=== PATIENT | female | born 1945 | race Caucasian/White ===

== ENCOUNTER 2017-09-16 09:07 | Outpatient (CLI) | payer MEDICARE, MEDICAID ==
--- NOTE | 2017-09-16 15:08 | DEXA Report ---
DEXA SCAN: 09/16/2017 CLINICAL INDICATION: Postmenopausal. TECHNIQUE: Dual energy x-ray absorptiometry (DXA) was performed on a [employer] system. Regions measured are the AP spine, femoral neck, and, if needed, forearm. COMPARISON: None. In accordance with the International Society for Clinical Densitometry (ISCD) guidelines, data from previous exams may be reanalyzed using current recommendations and techniques. This is done to allow a more accurate basis for comparison with the current study. FINDINGS The data for the lumbar spine is as follows: REGION BMD (g/cm/cm) T-SCORE Z-SCORE L1 1.511 3.2 4.2 L2 1.590 3.3 4.2 L3 1.646 3.7 4.7 L4 1.627 3.6 4.6 TOTAL 1.597 3.5 4.5 NOTE: All evaluable vertebrae are used for classification. The data for the hip is as follows: REGION BMD (g/cm/cm) T-SCORE Z-SCORE Neck 1.026 -0.1 1.3 TOTAL 1.169 1.3 2.4 NOTE: The femoral neck or total proximal femur, whichever is lowest, is used for classification. IMPRESSION THE WHO CLASSIFICATION BASED ON THE INTERNATIONAL REFERENCE STANDARD IS NORMAL. THE FRACTURE RISK IS NOT INCREASED. RECOMMENDATION: Patients with diagnosis of osteoporosis or osteopenia should have regular bone mineral density assessment. For those eligible for Medicare, routine testing is allowed once every 2 years. Testing frequency can be increased for patients who have rapidly progressing disease or for those who are receiving medical therapy to restore bone mass. COMMENT: World Health Organization (WHO) definitions for osteoporosis and osteopenia: NORMAL BMD: T-score at 1.0 or higher, fracture risk is low. OSTEOPENIA BMD: T-score between 1.0 and -2.5, fracture risk is increased. OSTEOPOROSIS BMD: T-score at 2.5 or lower, fracture risk high. National Osteoporosis Foundation recommends: 1. Obtain adequate dietary calcium (at least 1200 mg per day) and vitamin D (400 -800 international units per day). 2. Participate, as appropriate, in regular weightbearing and muscle- strengthening exercise. 3. Avoid tobacco use and reduce alcohol and caffeine intake. 4. For more detailed information see the website at www.NOF.org. TD: 09/16/2017 12:16 VASILIY
== END 2017-09-16 09:08 | disposition home or self-care (01) ==
LOC: DI 09:07
PROVIDERS: ATTEND Physician Assistant
DX: N95.8 Other specified menopausal and perimenopausal disorders (principal)
CPT/HCPCS: 77080

== ENCOUNTER 2017-09-16 09:10 | Outpatient (CLI) | payer MEDICARE, MEDICAID ==
--- NOTE | 2017-09-17 18:48 | Mammography Report ---
DIGITAL SCREENING MAMMOGRAM: 09/16/2017 CLINICAL INDICATION: A 71-year-old for screening. COMPARISON: 05/2016, 02/2014, 02/2013. TECHNIQUE: Routine CC and MLO projections were obtained of the breasts. FINDINGS: The breasts demonstrate scattered fibroglandular densities bilaterally. Coarse and punctate, typically benign calcifications are present. No suspicious masses, clustered microcalcifications, or regions of architectural distortion are identified. IMPRESSION: BENIGN FINDINGS. RECOMMENDATIONS: Routine annual screening unless otherwise clinically indicated. BIRADS category 2 benign findings. STANDARD QUALIFYING STATEMENTS 1. This examination was reviewed with the aid of Computed-Aided Detection (CAD). 2. A negative or benign imaging report should not delay biopsy if clinically suspicious findings are present. Consider surgical consultation if warranted. More than 5% of cancers are not identified by imaging. 3. Dense breasts may obscure an underlying neoplasm. TD: 09/17/2017 18:46
== END 2017-09-16 09:11 | disposition home or self-care (01) ==
LOC: DI 09:10
PROVIDERS: ATTEND Physician Assistant
DX: Z12.31 Encounter for screening mammogram for malignant neoplasm of breast (principal)
CPT/HCPCS: 77067

== ENCOUNTER 2017-11-18 11:53 | Outpatient (CLI) | payer MEDICARE, MEDICAID ==
--- NOTE | 2017-11-18 12:51 | XRAY Report ---
THREE VIEW LEFT ANKLE: 11/18/2017 CLINICAL INDICATION: Pain, swelling. FINDINGS: AP, lateral, and oblique views of the left ankle demonstrate no evidence of fracture or dislocation. Soft tissue swelling is present. Plantar and posterior calcaneal spurring is noted. No foreign body is seen in the soft tissues. IMPRESSION: SOFT TISSUE SWELLING, BUT NO EVIDENCE OF ACUTE FRACTURE. TD: 11/18/2017 12:50
== END 2017-11-18 11:54 | disposition home or self-care (01) ==
LOC: DI.S 11:53
PROVIDERS: ATTEND Physician Assistant
DX: M25.572 Pain in left ankle and joints of left foot (principal); R22.42 Localized swelling, mass and lump, left lower limb

== ENCOUNTER 2018-09-01 12:24 | Emergency (ER) | payer MEDICARE, MEDICAID ==
[2018-09-01 12:40] VITALS: BP 143/49
== END 2018-09-01 14:03 | disposition left against medical advice (07) ==
LOC: ED 12:24
DX: R51 Headache (principal); M54.2 Cervicalgia; M25.512 Pain in left shoulder; M25.511 Pain in right shoulder; Z53.21 Procedure and treatment not carried out due to patient leaving prior to being seen by health care provider

== ENCOUNTER 2018-09-23 12:19 | Outpatient (CLI) | payer MEDICARE, MEDICAID ==
--- NOTE | 2018-09-23 19:33 | CT Report ---
Reason: CRUSHING INJURY OF FACE,INITIAL ENCOUNTER,CERVICAL Procedure Date: 09/23/2018 Accession Number: [id number] / [id number] Procedure: CT - HEAD WO CPT Code: FULL RESULT: EXAM: CT HEAD EXAM DATE: 09/23/2018 12:46 PM. CLINICAL HISTORY: 72-year-old female. CRUSHING INJURY OF FACE,INITIAL ENCOUNTER,CERVICAL. COMPARISON: None. TECHNIQUE: Multiaxial CT images were obtained from the foramen magnum to the vertex. Reformats: Sagittal and coronal. IV contrast: None. In accordance with CT protocol optimization, one or more of the following dose reduction techniques were utilized for this exam: automated exposure control, adjustment of mA and/or KV based on patient size, or use of iterative reconstructive technique. FINDINGS: Parenchyma: No intraparenchymal hemorrhage. No evidence of mass, midline shift, or CT findings of infarction. Escobedo-white differentiation is distinct. Extraaxial Spaces: Normal for age. No subdural or epidural collections identified. Ventricles: Normal in size and position. Sinuses and Orbits: Imaged paranasal sinuses, orbits, and mastoids show no significant abnormality. Bones: No evidence of fracture or calvarial defect. Other: Moderate atherosclerosis intracranial arteries. IMPRESSION: No CT evidence of acute intracranial abnormality, specifically no CT evidence of acute infarct, intracranial hemorrhage, mass effect, midline shift, or hydrocephalus. RADIA
== END 2018-09-23 12:20 | disposition home or self-care (01) ==
LOC: DI 12:19
PROVIDERS: ATTEND Physician Assistant
DX: S07.0XXA Crushing injury of face, initial encounter (principal); M54.2 Cervicalgia; N18.3 Chronic kidney disease, stage 3 (moderate)
CPT/HCPCS: 70450; 76770

== ENCOUNTER 2018-09-23 12:21 | Outpatient (CLI) | payer MEDICARE, MEDICAID ==
--- NOTE | 2018-09-23 16:04 | Ultrasound Report ---
Reason: CHRONIC KIDNEY DISEASE, STAGE 3 Procedure Date: 09/23/2018 Accession Number: [id number] / [id number] Procedure: US - Retroperitoneal CPT Code: FULL RESULT: EXAM: RENAL ULTRASOUND. EXAM DATE: 09/23/2018 01:30 PM. CLINICAL HISTORY: Chronic kidney disease, stage 3. COMPARISON: None. TECHNIQUE: Real-time scanning was performed with static images obtained. FINDINGS: Subjectively there is mild cortical thinning of both kidneys. Right Kidney: 9.5 cm. Increased cortical echogenicity, otherwise normal echotexture with no stones, contour-deforming masses, or hydronephrosis. Left Kidney: 10.4 cm. Increased cortical echogenicity, otherwise normal echotexture with no stones, contour-deforming masses, or hydronephrosis. Bladder: Bilateral jets seen. The prevoid bladder volume was 310 cc. The postvoid bladder volume was 162 cc. Other: None. IMPRESSION: Echogenic shrunken kidneys in keeping with medical renal disease. Postvoid residual of 162 mL. RADIA
== END 2018-09-23 12:22 | disposition home or self-care (01) ==
LOC: DI 12:21
PROVIDERS: ATTEND Physician Assistant
DX: N18.3 Chronic kidney disease, stage 3 (moderate) (principal)
CPT/HCPCS: 76770

== ENCOUNTER 2018-09-24 09:09 | Outpatient (CLI) | payer MEDICARE, MEDICAID ==
--- NOTE | 2018-09-24 11:01 | XRAY Report ---
Reason: CERVALGIA Procedure Date: 09/24/2018 Accession Number: [id number] / [id number] Procedure: XR - Cervical Spine 2 View CPT Code: FULL RESULT: EXAM: CERVICAL SPINE RADIOGRAPHY EXAM DATE: 09/24/2018 09:40 AM. CLINICAL HISTORY: Cervicalgia. COMPARISONS: None. TECHNIQUE: 3 views. FINDINGS: Alignment: Normal. No spondylolisthesis or scoliosis. Bones: The cervical vertebral bodies and posterior elements are well visualized from the skull base through C7-T1. No fractures or bone lesions. Disks: Normal. Disk heights are maintained. Facets: Mild lateral mass hypertrophy and facet arthropathy. Soft Tissues: Normal. No prevertebral soft tissue swelling. The visualized lung apices are clear. IMPRESSION: Degenerative disease prominently in the facets and lateral masses. RADIA
== END 2018-09-24 09:10 | disposition home or self-care (01) ==
LOC: DI 09:09
PROVIDERS: ATTEND Physician Assistant
DX: M47.812 Spondylosis without myelopathy or radiculopathy, cervical region (principal)
CPT/HCPCS: 72040

== ENCOUNTER 2020-02-04 09:53 | Outpatient (CLI) | payer MEDICARE, MEDICAID | END 2020-02-04 09:54 | disposition critical access hospital (66) | LOC: EMS 09:53 | PROVIDERS: ATTEND Surgery | DX: R42 Dizziness and giddiness (principal); R11.0 Nausea; R53.1 Weakness | CPT/HCPCS: A0425; A0427 ==

== ENCOUNTER 2020-02-04 10:33 | Emergency (ER) | payer MEDICARE, MEDICAID ==
[2020-02-04] MEDS ORDERED: SODIUM CHLORIDE 0.9% 1,000 ML IV STA ×2 (11:05→14:55)
--- NOTE | 2020-02-04 11:08 | ED Physician Documentation ---
History of Present Illness - Stated complaint Stated Complaint: WEAKNESS - Chief complaint Chief Complaint: General - History obtained from History obtained from: Patient, Family - History of Present Illness Timing: Today - Additonal information Additional information: 74-year-old female has had some swelling in her ankles which is usually typical for her in the summer and about 6 days ago she went in to see Dr. Cervantes and was prescribed some Lasix. She started that on Saturday morning and she is lost about 6 or 8 pounds of water today she can barely stand up. She is brought in by ambulance. Review of Systems Constitutional: denies: Fever, Chills Nose: denies: Congestion Throat: denies: Sore throat Cardiac: denies: Chest pain / pressure, Palpitations Respiratory: denies: Dyspnea, Cough GI: denies: Abdominal Pain, Nausea, Vomiting, Constipation, Diarrhea : reports: Frequency. denies: Dysuria Skin: denies: Rash, Lesions Musculoskeletal: denies: Neck pain, Back pain, Extremity pain Neurologic: reports: Generalized weakness. denies: Focal weakness, Numbness PD PAST MEDICAL HISTORY - Past Medical History Past Medical History: Yes Cardiovascular: None Respiratory: None Neuro: None Endocrine/Autoimmune: Type 2 diabetes GI: None ETHYLBENZENE OXIDIZER: None : Other HEENT: None Psych: None Musculoskeletal: None Derm: None Other Past Medical History: CKD - Past Surgical History Past Surgical History: No - Allergies Allergies/Adverse Reactions: Allergies Allergy/AdvReac Type Severity Reaction Status Date / Time hydrocodone Allergy Anaphylaxis Verified 09/01/18 12:41 - Social History Does the pt smoke?: No Smoking Status: Never smoker PD ED PE NORMAL - Vitals Vital signs reviewed: Yes (Hypertensive with wide pulse pressure) - General General: Alert and oriented X 3, No acute distress, Well developed/nourished - HEENT HEENT: Atraumatic, PERRL, EOMI - Neck Neck: Supple, no meningeal sign, No bony TTP - Cardiac Cardiac: RRR, No murmur - Respiratory Respiratory: No respiratory distress, Clear bilaterally - Abdomen Abdomen: Normal bowel sounds, Soft, Non tender, Non distended, No organomegaly - Back Back: No CVA TTP, No spinal TTP - Derm Derm: Normal color, Warm and dry, No rash - Extremities Extremities: No deformity, Normal ROM s pain, No edema, No calf tenderness / cord - Neuro Neuro: Alert and oriented X 3, supervisor twisting department 2-12 intact, No motor deficit, No sensory deficit, Normal speech Eye Opening: Spontaneous Motor: Obeys Commands Verbal: Oriented GCS Score: 15 - Psych Psych: Normal mood, Normal affect Results - Vitals Vitals: Vital Signs - 24 hr 02/04/20 02/04/20 02/04/20 10:34 13:26 16:07 Temperature 36.2 C L 37.1 C Heart Rate 58 L 54 L 69 Respiratory 16 20 18 Rate Blood Pressure 165/58 H 145/57 H 176/85 H O2 Saturation 99 98 97 Oxygen O2 Source Room air - Labs Labs: Laboratory Tests 02/04/20 02/04/20 02/04/20 12:11 15:20 15:20 WBC RBC Hgb Hct MCV MCH MCHC RDW Plt Count MPV Neut # (Auto) Lymph # (Auto) [place] # (Auto) Eos # (Auto) Baso # (Auto) Absolute Nucleated RBC Nucleated RBC % Sodium 142 Potassium 4.8 Chloride 105 Carbon Dioxide 24 Anion Gap 13.0 BUN 53 H Creatinine 1.3 H Estimated GFR (MDRD) 40 L Glucose 203 H Lactic Acid Calcium 8.6 Total Bilirubin 0.9 AST 25 ALT 20 Alkaline Phosphatase 83 B-Natriuretic Peptide 119 H Total Protein 7.1 Albumin 3.6 Globulin 3.5 Albumin/Globulin Ratio 1.0 Lipase 35 Urine Color YELLOW Urine Clarity CLEAR Urine pH 5.5 Ur Specific [place] 1.025 Urine Protein NEGATIVE Urine Glucose (UA) NEGATIVE Urine Ketones NEGATIVE Urine Occult Blood NEGATIVE Urine Nitrite NEGATIVE Urine Bilirubin NEGATIVE Urine Urobilinogen 0.2 (NORMAL) Ur Leukocyte Esterase NEGATIVE Ur Microscopic Review NOT INDICATED Urine Culture Comments NOT INDICATED 02/04/20 02/04/20 15:20 15:20 WBC 12.6 H RBC 4.27 Hgb 13.4 Hct 40.8 MCV 95.6 MCH 31.4 H MCHC 32.8 RDW 14.6 Plt Count 196 MPV 10.0 Neut # (Auto) 9.8 H Lymph # (Auto) 2.3 [place] # (Auto) 0.4 Eos # (Auto) 0.0 Baso # (Auto) 0.0 Absolute Nucleated RBC 0.00 Nucleated RBC % 0.0 Sodium Potassium Chloride Carbon Dioxide Anion Gap BUN Creatinine Estimated GFR (MDRD) Glucose Lactic Acid 1.8 Calcium Total Bilirubin AST ALT Alkaline Phosphatase B-Natriuretic Peptide Total Protein Albumin Globulin Albumin/Globulin Ratio Lipase Urine Color Urine Clarity Urine pH Ur Specific [place] Urine Protein Urine Glucose (UA) Urine Ketones Urine Occult Blood Urine Nitrite Urine Bilirubin Urine Urobilinogen Ur Leukocyte Esterase Ur Microscopic Review Urine Culture Comments Procedures - IVC sono (time) 1103 Bedside IVC sono: IVC measures (cm) (0.75), IVC collapsed c insp (cm) (complete), Significant dehydration (est >2 liter deficit) PD MEDICAL DECISION MAKING - ED course Complexity details: considered differential, d/w patient, d/w family ED course: Previously well 74-year-old female has started on some Lasix she now appears significantly dehydrated on interrogation the inferior vena cava. Clinically she gives a history consistent with dehydration and symptoms of dehydration. An IV is begun and she is given normal saline. Her electrolytes were checked. Her BUN is 53 consistent with the level of dehydration she is experiencing.She has marked improvement with use of saline and feels well at the time of discharge Departure - Departure Disposition: 01 Home, Self Care Clinical Impression: Dehydration Instructions: ED Dehydration Follow-Up: Sangeeta Escobedo PA [Primary Care Provider] - Comments: They were significantly dehydrated from the use of the furosemide discontinue the furosemide today and drink extra fluids. Discharge Date/Time: 02/04/20 16:08
[2020-02-04 12:23] LABS: BILIRUBIN,URINE NEGATIVE (NEGATIVE); GLUCOSE, URINE (UA) NEGATIVE (NEGATIVE); KETONES,URINE (UA) NEGATIVE (NEGATIVE); LEUKOCYTE ESTERASE, URINE NEGATIVE (NEGATIVE); NITRITE,URINE NEGATIVE (NEGATIVE); OCCULT BLOOD,URINE NEGATIVE (NEGATIVE); PH,URINE 5.5 PH (5.0-7.5); PROTEIN,URINE NEGATIVE (NEGATIVE); UROBILINOGEN,URINE 0.2 (NORMAL) E.U./dL (NORMAL)
[2020-02-04 12:24] LABS: CLARITY,URINE CLEAR (CLEAR)
[2020-02-04 15:32] LABS: BASOPHILS % (AUTO) 0.3 %; EOSINOPHILS % (AUTO) 0.1 %; HGB - HEMOGLOBIN 13.4 g/dL (12.0-16.0); LYMPHOCYTES # (AUTO) 2.3 10^3/uL (1.5-3.5); LYMPHOCYTES % (AUTO) 18.3 %; MEAN CORPUSCULAR HEMOGLOBIN 31.4 pg (27.0-31.0); MEAN CORPUSCULAR HGB CONC 32.8 g/dL (32.0-36.0); MEAN CORPUSCULAR VOLUME 95.6 fL (81.0-99.0); MONOCYTES # (AUTO) 0.4 10^3/uL (0.0-1.0); NEUTROPHILS # (AUTO) 9.8 10^3/uL (1.5-6.6); NEUTROPHILS % (AUTO) 77.9 %; PLT - PLATELET COUNT 196 10^3/uL (130-450); RED BLOOD COUNT 4.27 10^6/uL (4.20-5.40); RED CELL DISTRIBUTION WIDTH 14.6 % (12.0-15.0); WHITE BLOOD COUNT 12.6 x10^3/uL (4.8-10.8)
[2020-02-04 15:41] LABS: ALBUMIN 3.6 g/dL (3.2-5.5); BILIRUBIN,TOTAL 0.9 mg/dL (0.2-1.0); CALCIUM 8.6 mg/dL (8.5-10.3); CREATININE 1.3 mg/dL (0.4-1.0); TOTAL PROTEIN 7.1 g/dL (6.7-8.2)
[2020-02-04 16:08] VITALS: BP 176/85
== END 2020-02-04 16:08 | disposition home or self-care (01) ==
LOC: EDUNIT# → ED 10:33
DX: E86.0 Dehydration (principal); E11.22 Type 2 diabetes mellitus with diabetic chronic kidney disease; N18.9 Chronic kidney disease, unspecified
CPT/HCPCS: 36415; 80053; 81001; 81003; 83605; 83690; 83880; 85025; 87086; 96360; 96361; 99284

== ENCOUNTER 2020-02-18 09:19 | Outpatient (CLI) | payer MEDICARE, MEDICAID ==
--- NOTE | 2020-02-18 16:30 | Ultrasound Report ---
PROCEDURE: Carotid Doppler Complete INDICATIONS: HISTORY OF SYNCOPE TECHNIQUE: Color and pulse Doppler interrogation was performed of both carotid systems, with image documentation and velocity measurements. COMPARISON: None. FINDINGS: Right side: Common carotid artery peak systolic velocity: 90 cm/sec. Internal carotid artery peak systolic velocity: 118 cm/sec. Internal carotid artery end diastolic velocity: 24 cm/sec. External carotid artery peak systolic velocity: 128 cm/sec. ICA/CCA peak systolic ratio: 1.3 . Escobedo scale imaging description: Moderate plaque at the bifurcation Percent internal carotid artery stenosis: Less than 50% . Vertebral artery: Flow direction is antegrade. Left side: Common carotid artery peak systolic velocity: 108 cm/sec. Internal carotid artery peak systolic velocity: 109 cm/sec. Internal carotid artery end diastolic velocity: 27 cm/sec. External carotid artery peak systolic velocity: 96 cm/sec. ICA/CCA peak systolic ratio: 1.0 . Escobedo scale imaging description: Mild to moderate plaque at the bifurcation. Percent internal carotid artery stenosis: Less than 50% . Vertebral artery: Flow direction is antegrade. IMPRESSION: Less than 50% stenosis of the internal carotid arteries bilaterally. The estimate of stenosis included in the report of the imaging study was calculated using the NASCET method Reviewed by: Simin Jarrell MD on 02/18/2020 4:28 PM PDT Approved by: Simin Jarrell MD on 02/18/2020 4:28 PM PDT Station ID: [id number]
== END 2020-02-18 09:20 | disposition home or self-care (01) ==
LOC: DI 09:19
PROVIDERS: ATTEND Registered Nurse
DX: R55 Syncope and collapse (principal)
CPT/HCPCS: 93880

== ENCOUNTER 2021-09-12 17:01 | Outpatient (CLI) | payer MEDICARE, MEDICAID | END 2021-09-12 17:02 | disposition short-term general hospital (02) | LOC: EMS 17:01 | DX: R53.1 Weakness (principal); R29.810 Facial weakness; R47.81 Slurred speech; R32 Unspecified urinary incontinence | CPT/HCPCS: A0425; A0429 ==

== ENCOUNTER 2022-09-27 14:50 | Outpatient (CLI) | payer MEDICARE, MEDICAID | END 2022-09-27 14:51 | disposition home or self-care (01) | LOC: DI 14:50 | PROVIDERS: ATTEND Internal Medicine Cardiovascular Disease | DX: I50.41 Acute combined systolic (congestive) and diastolic (congestive) heart failure (principal); I34.0 Nonrheumatic mitral (valve) insufficiency | CPT/HCPCS: 93306 ==